=== PATIENT | male | born 1995 | race Caucasian/White ===

== ENCOUNTER 2021-04-25 00:25 | Observation (INO) | payer SELFPAY ==
[~2021-04-25] VITALS: Ht 167 cm; Wt 52.7 kg
[2021-04-25] MEDS ORDERED: HYDROcodone/APAP 5 MG/325 MG (LORTAB) TAB PO PRN (03:00)
[2021-04-25] MEDS ORDERED: ONDANSETRON 4 MG/2 ML (SDV) Z0FRAN IVP PRN (03:00)
[2021-04-25] MEDS ORDERED: fentaNYL INJ 100 MCG/2 ML AMP IVP PRN (03:00)
[2021-04-25] MEDS ORDERED: METOCLOPRAMIDE INJ 10 MG/2 ML (REGLAN) IVP PRN (03:00)
[2021-04-25] MEDS: LACTATED RINGERS 1,000 ML IV SCH ×4 (03:52→18:24)
[2021-04-25 04:12] VITALS: BP 120/77
[2021-04-25 04:20] LABS: BASOPHILS % (AUTO) 0 % (0-10); EOSINOPHILS % (AUTO) 0 % (0-10); HEMATOCRIT 46 % (40-54); HEMOGLOBIN 15.6 g/dL (13.3-17.7); LYMPHOCYTES # (AUTO) 1.7 10^3/uL (1.0-4.0); LYMPHOCYTES % (AUTO) 9 % (12-44); MEAN CORPUSCULAR HEMOGLOBIN 30 pg (25-34); MEAN CORPUSCULAR HGB CONC 34 g/dL (32-36); MEAN CORPUSCULAR VOLUME 88 fL (80-99); MEAN PLATELET VOLUME 9.8 fL (9.0-12.2); MONOCYTES # (AUTO) 1.3 10^3/uL (0.0-1.0); MONOCYTES % (AUTO) 7 % (0-12); NEUTROPHILS # (AUTO) 15.8 10^3/uL (1.8-7.8); NEUTROPHILS % (AUTO) 84 % (42-75); PLATELET COUNT 406 10^3/uL (130-400); WHITE BLOOD COUNT 18.9 10^3/uL (4.3-11.0)
[2021-04-25 04:32] LABS: POTASSIUM 3.5 MMOL/L (3.6-5.0)
[2021-04-25 04:33] LABS: CALCIUM 9.1 MG/DL (8.5-10.1)
[2021-04-25 04:36] LABS: BAND NEUTROPHILS 5 %; LYMPHOCYTES % (MANUAL) 9 %; MONOCYTES % (MANUAL) 6 %; NEUTROPHILS % (MANUAL) 80 %; RBC MORPH NORMAL
[2021-04-25 04:38] LABS: CREATININE SERUM 1.04 MG/DL (0.60-1.30)
[2021-04-25] MEDS ORDERED: PIPERACILLIN/TAZOBACTAM (BULK) 4.5 GM in NS (IVPB) 100 ML IV ONE (05:00)
[2021-04-25 08:00] VITALS: BP 121/80
[2021-04-25] MEDS ORDERED: HOLD METFORMIN - RECEIVED CONTRAST 20 ML VIAL IV SCH (08:15)
[2021-04-25] MEDS ORDERED: IOHEXOL 350 MG/ML 100 ML (OMNIPAQUE 350) VIAL IV ONE (08:15)
[2021-04-25] MEDS ORDERED: NS 100 ML (IVPB) BAG IV ONE (08:15)
--- NOTE | 2021-04-25 08:46 | Diagnostic Imaging Report ---
PROCEDURE: CT abdomen and pelvis with contrast. TECHNIQUE: Multiple contiguous axial images were obtained through the abdomen and pelvis after administration of intravenous contrast. Auto Exposure Controls were utilized during the CT exam to meet ALARA standards for radiation dose reduction. All CT scans use one or more of the following dose optimizing techniques: automated exposure control, MA and/or KvP adjustment based on patient size and exam type or iterative reconstruction. INDICATION: Small bowel obstruction. No comparison is available FINDINGS: The lung bases are clear. There is no infiltrate or pleural effusion. There is no pericardial collection. The liver demonstrates no evidence of a focal intrahepatic abnormality. The gallbladder is nondistended. There is no radiodense gallstone or findings of biliary dilatation. The spleen is normal. Pectus unremarkable. There is no adrenal mass. The left kidney is normal. The right kidney is not present. The stomach is not significantly distended. There are findings of a normal caliber duodenal sweep. Some proximal loops of jejunum in the left upper quadrant are also normal in caliber. The remainder of the small bowel demonstrates fluid distention and mild dilation. There then are nondilated loops within the most distal aspect of the ileum extending to the terminal ileum. These loops of bowel demonstrate some slight mucosal thickening. A transition between the dilated loops of bowel and small bowel appears within the right lower quadrant. In addition to the dilation of the small bowel, there is also fluid demonstrated throughout the colon to the level of the rectum. There are no findings of pneumatosis. There is no free air. There is a small volume of free fluid within the pelvis. There is no abscess. A few mildly prominent right lower quadrant mesenteric lymph nodes. There are no findings of pathologic lymph node enlargement. The aorta is normal in caliber. There is no acute or suspicious osseous abnormality. IMPRESSION: 1. Multiple loops of dilated fluid-filled small bowel with decompression of the distal ileum and terminal ileum. Transition between the dilated loops of bowel and small bowel appear to be within the right lower quadrant. Findings suggest at least a partial small bowel obstruction. Considerations given the findings within the ileum would be secondary to features of inflammatory bowel disease. This may not however be a complete bowel obstruction as there is also a significant degree of fluid demonstrated throughout the colon. 2. Trace free fluid within the pelvis. There is no abscess. 3. No pneumatosis, free air or portal venous gas. 4. Absent right kidney. Dictated by: Dictated on workstation # [id number]
[2021-04-25] MEDS: PANTOPRAZOLE 40 MG (PROTONIX) VIAL IV SCH (09:02)
[2021-04-25] MEDS: PIPERACILLIN/TAZOBACTAM (BULK) 4.5 GM in NS (IVPB) 100 ML IV SCH ×2 (10:25→18:27)
[2021-04-25 11:34] VITALS: BP 113/77
--- NOTE | 2021-04-25 11:47 | HISTORY AND PHYSICAL ---
DATE OF SERVICE: HISTORY OF PRESENT ILLNESS: The patient is a 25-year-old male who initially reported to [facility] in [place] yesterday with nausea and vomiting after eating. At that time, he was given some nausea medication. He then had continued nausea and vomiting as well as increasing abdominal pain and did present to the Emergency Department at [facility] in [place]. He did undergo laboratory work, which did show an elevated white count of 22,000 as well as an elevated lactic acid of 8. He also underwent a CT scan, which did show a small-bowel obstruction as well as some mucosal thickening and this was concerning for possible inflammatory bowel disease. He was then transferred to [facility] for further care. Upon further questioning today, he reports that his abdominal pain has subsided, and he is passing lots of flatus. He denies any nausea or vomiting today and did report a small bowel movement this morning. He denies any family history of any inflammatory bowel disease and reports that he has not had anything like this before. Denies any blood in his stool or any other issues. He did, however, report having some cold sweats yesterday. PAST MEDICAL HISTORY: None. PAST SURGICAL HISTORY: Tonsils. ALLERGIES: No known drug allergies. MEDICATIONS: None. SOCIAL HISTORY: Negative for smoking, negative for alcohol. FAMILY HISTORY: Grandmother, myocardial infarction. VITAL SIGNS: Blood pressure 121/80. Pulse 119, respirations 20, pulse ox 97% on room air, temperature 36.7 degrees Celsius. REVIEW OF SYSTEMS: This is a well-nourished male in no acute distress. He is not experiencing any shortness of breath or difficulty breathing. No chest pain, palpitations or diaphoresis. He did report episodes of nausea and vomiting as well as abdominal pain, which has since resolved. He denies any diarrhea or constipation as well as no red blood per rectum. No dark tarry stools. He did report episodes of cold sweats. All other review of systems negative. PHYSICAL EXAMINATION: CHEST: Clear. Good breath sounds bilaterally. HEART: Regular, no murmurs. EXTREMITIES: No lower extremity edema. Negative Homans sign. HEENT: No scleral icterus. NECK: No cervical lymphadenopathy. ABDOMEN: Soft, nondistended, notenderness upon palpation at this point. No peritoneal signs. SKIN: Warm, dry and pink. NEUROLOGIC: Awake, alert and oriented x3. LABORATORY DATA: WBC 18.9, hemoglobin 15.6, hematocrit 46, platelets 406. Sodium 143, potassium 3.5, chloride 110, BUN 16, creatinine 1.04, GFR 88. ASSESSMENT AND PLAN: A 25-year-old male with sepsis as well as small-bowel obstruction, most likely secondary to underlying inflammatory bowel disease. At this time, we will proceed with conservative management with IV fluids, bowel rest as well as pain and nausea medication and antibiotics. Once he has gained some bowel function, then we will proceed with advancing his diet. He will also need endoscopy at some point to rule out any inflammatory bowel disease. Job ID: [id number] DocumentID: [id number] Dictated Date: 04/25/2021 11:09:34 Drywall Installer Date: 04/25/2021 11:46:34 Dictated By: BUZZ WALKER
[2021-04-25 15:41] VITALS: BP 114/76
[2021-04-25 19:21] VITALS: BP 113/78
[2021-04-25 23:50] VITALS: BP 108/75
[2021-04-26] MEDS: PIPERACILLIN/TAZOBACTAM (BULK) 4.5 GM in NS (IVPB) 100 ML IV SCH ×3 (02:47→18:37)
[2021-04-26 04:27] VITALS: BP 109/74
[2021-04-26 05:59] LABS: BASOPHILS # (AUTO) 0.1 10^3/uL (0.0-0.1); BASOPHILS % (AUTO) 1 % (0-10); EOSINOPHILS # (AUTO) 0.3 10^3/uL (0.0-0.3); EOSINOPHILS % (AUTO) 3 % (0-10); HEMATOCRIT 36 % (40-54); HEMOGLOBIN 12.2 g/dL (13.3-17.7); LYMPHOCYTES # (AUTO) 3.2 10^3/uL (1.0-4.0); LYMPHOCYTES % (AUTO) 32 % (12-44); MEAN CORPUSCULAR HEMOGLOBIN 30 pg (25-34); MEAN CORPUSCULAR HGB CONC 34 g/dL (32-36); MEAN CORPUSCULAR VOLUME 89 fL (80-99); MEAN PLATELET VOLUME 9.7 fL (9.0-12.2); MONOCYTES # (AUTO) 0.8 10^3/uL (0.0-1.0); MONOCYTES % (AUTO) 8 % (0-12); NEUTROPHILS # (AUTO) 5.7 10^3/uL (1.8-7.8); NEUTROPHILS % (AUTO) 57 % (42-75); PLATELET COUNT 260 10^3/uL (130-400)
[2021-04-26 06:10] LABS: ALBUMIN 3.1 GM/DL (3.2-4.5)
[2021-04-26 06:11] LABS: POTASSIUM 3.2 MMOL/L (3.6-5.0)
[2021-04-26 06:12] LABS: CALCIUM 8.3 MG/DL (8.5-10.1)
[2021-04-26 06:13] LABS: TOTAL PROTEIN 5.3 GM/DL (6.4-8.2)
[2021-04-26 06:15] LABS: BILIRUBIN,TOTAL 0.8 MG/DL (0.1-1.0)
[2021-04-26 06:17] LABS: CREATININE SERUM 0.9 MG/DL (0.60-1.30)
[2021-04-26 07:22] VITALS: BP 106/72
[2021-04-26] MEDS: LACTATED RINGERS 1,000 ML IV SCH ×3 (07:52→17:03)
[2021-04-26] MEDS: PANTOPRAZOLE 40 MG (PROTONIX) VIAL IV SCH (07:52)
--- NOTE | 2021-04-26 10:19 | Progress Note ---
Subjective Date Seen by a Provider: Apr 26, 2021 Time Seen by a Provider: 09:50 Subjective/Events-last exam Patient seen with Dr. Nation. Patient reports doing well and denies any pain. Reports passing flatus and having BMs. No N/V or Fever/chills. Tolerating diet. Objective Exam Vital Signs Date Time Temp Pulse Resp B/P (MAP) Pulse Ox O2 Delivery O2 Flow Rate FiO2 04/26/21 08:00 97 Room Air 04/26/21 07:22 36.8 76 16 106/72 (83) 97 Room Air 04/26/21 04:27 36.6 89 16 109/74 (86) 99 Room Air 04/25/21 23:50 36.7 99 18 108/75 (86) 92 Room Air 04/25/21 20:00 Room Air 04/25/21 19:21 37.2 94 18 113/78 (90) 98 Room Air 04/25/21 15:41 36.4 89 18 114/76 (89) 99 Room Air 04/25/21 11:34 36.0 98 16 113/77 (89) 98 Room Air I & O 04/26/21 06:59 Intake Total 1062 ml Balance 1062 ml Capillary Refill : General Appearance: No Apparent Distress, WD/WN Neck: Normal Inspection, Non Tender Respiratory: No Accessory Muscle Use, No Respiratory Distress Cardiovascular: Regular Rate, Rhythm, No Edema Gastrointestinal: normal bowel sounds, non tender, soft Extremity: Normal Inspection, Normal Range of Motion Neurologic/Psychiatric: Alert, Oriented x3 Skin: Normal Color, Warm/Dry Results Lab Laboratory Tests 04/26/21 05:26: White Blood Count 10.0, Red Blood Count 4.05L, Hemoglobin 12.2#L, Hematocrit 36L , Mean Corpuscular Volume 89, Mean Corpuscular Hemoglobin 30, Mean Corpuscular Hemoglobin Concent 34, Red Cell Distribution Width 13.6, Platelet Count 260, Mean Platelet Volume 9.7, Immature Granulocyte % (Auto) 0, Neutrophils (%) (Auto) 57, Lymphocytes (%) (Auto) 32, Monocytes (%) (Auto) 8, Eosinophils (%) (Auto) 3, Basophils (%) (Auto) 1, Neutrophils # (Auto) 5.7, Lymphocytes # (Auto) 3.2, Monocytes # (Auto) 0.8, Eosinophils # (Auto) 0.3, Basophils # (Auto) 0.1, Immature Granulocyte # (Auto) 0.0, Sodium Level 142, Potassium Level 3.2L, Chloride Level 110H, Carbon Dioxide Level 24, Anion Gap 8, Blood Urea Nitrogen 10, Creatinine 0.90, Estimat Glomerular Filtration Rate 104, BUN/Creatinine Ratio 11, Glucose Level 78, Calcium Level 8.3L, Corrected Calcium 9.0, Total Bilirubin 0.8, Aspartate Amino Transf (AST/SGOT) 14, Alanine Aminotransferase (ALT/SGPT) 7, Alkaline Phosphatase 47, Total Protein 5.3L, Albumin 3.1L Assessment/Plan Assessment/Plan Assess & Plan/Chief Complaint A 25 year old male with SBO - could be secondary to underlying undiagnosed IBD VSS WBC 10.0 Continue IV fluids, abx, pain and nausea medications. Encourage ambulation Will advance to DYS3 diet SANDI CATHERINE APRN Apr 26, 2021 10:19
[2021-04-26] MEDS ORDERED: ACHD5005 PO (11:22)
--- NOTE | 2021-04-26 11:23 | Discharge Inst-Surgical ---
D/C Lap Instructions-MIRZA Reconcile Patient Problems Problems Reviewed?: Yes New, Converted, or Re-Newed RX: RX on Chart Follow Up Appt with Dr. Nation as needed Activity as tolerated No driving while on pain medications Regular Diet Symptoms to Report: Fever over 101 degree F, Nausea/Vomiting, increasing abdominal pain Bathing instructions: May shower If any problems/questions: Contact your physician or go to Emergency Room SANDI CATHERINE APRN Apr 26, 2021 11:23
[2021-04-26 11:53] VITALS: BP 117/79
[2021-04-26] MEDS ORDERED: fentaNYL INJ 100 MCG/2 ML AMP IVP PRN (15:45)
[2021-04-26 15:57] VITALS: BP 109/83
[2021-04-26 18:39] VITALS: BP 109/83
--- NOTE | 2021-04-30 12:53 | Physician Query-Final Dx ---
NAWAF BUCIO 04/30/21 1253: Final Diagnosis Give Final Diagnosis Please give Final Diagnosis GAIL BLUE MD 04/30/21 1258: Final Diagnosis Give Final Diagnosis partial small bowel obstruction with likely underlying inflammatory bowel disease. NAWAF BUCIO Apr 30, 2021 12:53 GAIL BLUE MD Apr 30, 2021 12:58
== END 2021-04-26 18:11 | disposition home or self-care (01) ==
LOC: 4TH 02:25 → UNDOADMOB 02:25 → UNDODISOB 04-26 19:09
PROVIDERS: ADMIT Surgery; ATTEND Surgery
DX: K56.600 Partial intestinal obstruction, unspecified as to cause (principal); A41.9 Sepsis, unspecified organism; J45.909 Unspecified asthma, uncomplicated; K21.9 Gastro-esophageal reflux disease without esophagitis; E78.5 Hyperlipidemia, unspecified; E03.9 Hypothyroidism, unspecified; K58.9 Irritable bowel syndrome, unspecified; G40.909 Epilepsy, unspecified, not intractable, without status epilepticus; F32.9 Major depressive disorder, single episode, unspecified; Z87.11 Personal history of peptic ulcer disease; Z79.899 Other long term (current) drug therapy; Z83.3 Family history of diabetes mellitus; Z82.49 Family history of ischemic heart disease and other diseases of the circulatory system; Z82.3 Family history of stroke
CPT/HCPCS: 74177; 80048; 80053; 85007; 85025; 85027; 87040; G0378; G0379; 36415; 99211